=== PATIENT | female | born 1955 | race Caucasian/White ===

== ENCOUNTER 2019-10-27 18:23 | Inpatient (IN) | payer OTHER ==
[~2019-10-27] VITALS: Ht 162.6 cm; Wt 55.8 kg
--- NOTE | 2019-10-27 18:28 | NUR ---
BIB RA 39 From "[facility] was waiting for MRI-took seroquel -now sleepy [id number]" pt states "took 2 instead of 4". to ER bed 9, hooked to cardiac specialist and pox, normal sinus rhythm noted. patient responds to tactile stimuli. answers one question after repetition. appears drowsy. Dr Frey at bedside
[2019-10-27] MEDS ORDERED: IV NS 0.9% 500 ML BAG IV ONE (18:30)
--- NOTE | 2019-10-27 18:43 | NUR ---
picked up by anjali rogers via [facility] for ct scan
--- NOTE | 2019-10-27 19:15 | NUR ---
patient refusing straight catheter, made md aware.
--- NOTE | 2019-10-27 19:16 | NUR ---
PT UNABLE TO PROVIDE URINE AT THIS TIME. MADE AWARE
--- NOTE | 2019-10-27 19:16 | NUR ---
EKG AT BEDSIDE
[2019-10-27 19:19] LABS: BASOPHILS % (AUTO) 0.3 % (0.0-2.0); EOSINOPHILS % (AUTO) 0.2 % (0.0-6.0); HEMATOCRIT 39 % (33-45); HEMOGLOBIN 12.9 g/dL (11.5-14.8); LYMPHOCYTES # (AUTO) 1.9 /CMM (0.8-4.8); LYMPHOCYTES % (AUTO) 47.8 % (20.0-44.0); MEAN CORPUSCULAR HGB CONC 33 g/dl (31.0-36.0); MEAN CORPUSCULAR VOLUME 104 fL (82-100); MONOCYTES # (AUTO) 0.3 /CMM (0.1-1.30); MONOCYTES % (AUTO) 7.6 % (2.0-12.0); NEUTROPHILS # (AUTO) 1.7 /CMM (1.8-8.9); NEUTROPHILS % (AUTO) 44.1 % (43.0-81.0); PLATELET COUNT (AUTO) 150 /CMM (150-450); RED BLOOD CELL COUNT(AUTO) 3.73 MIL/uL (4.0-5.2); WHITE BLOOD COUNT (AUTO) 3.9 K/uL (4.3-11.0)
--- NOTE | 2019-10-27 19:24 | NUR ---
COVID SAMPLE SWAB COLLECTED AND SENT TO LAB
[2019-10-27 19:36] LABS: ALANINE AMINOTRANSFERASE 17 U/L (12-78); ALBUMIN 3.7 g/dL (3.4-5.0); ALCOHOL, BLOOD 28 mg/dL (0-0); ALKALINE PHOSPHATASE 78 U/L (46-116); ASPARTATE AMINOTRANSFERASE 17 U/L (15-37); BILIRUBIN,DIRECT 0.1 mg/dL (0.0-0.2); BILIRUBIN,TOTAL 0.2 mg/dL (0.2-1.0); CARBON DIOXIDE 26 mmol/L (21-32); CHLORIDE 106 mmol/L (98-107); CREATININE 0.6 mg/dL (0.6-1.3); GLUCOSE 88 mg/dL (74-106); SALICYLATE 5.5 mg/dL (2.8-20.0); SODIUM SERUM 141 mmol/L (136-145); TOTAL PROTEIN, SERUM 7.8 g/dL (6.4-8.2); UREA NITROGEN, BLOOD 26 mg/dL (7-18)
[2019-10-27 19:37] LABS: ACETAMINOPHEN 0 ug/ml (10-30)
[2019-10-27 19:49] LABS: SERUM AMMONIA 29 umol/L (11-32)
[2019-10-27] MEDS ORDERED: IOHEXOL-300 100 ML VIAL IV ONE ×2 (19:51→20:01)
[2019-10-27] MEDS ORDERED: CT SWABBABLE VALVE TRANS SET 1 EA INFUS.SET MC ONE ×2 (19:52→20:01)
[2019-10-27] MEDS ORDERED: IV NS 0.9% 250 ML IV ONE ×2 (19:52→20:01)
[2019-10-27 20:01] LABS: APPEARANCE,URINE Clear (CLEAR); BILIRUBIN,URINE Negative (NEGATIVE); BLOOD, URINE Negative Ery/uL (NEGATIVE); COLOR,URINE Yellow (YELLOW); KETONES,URINE Negative (NEGATIVE); LEUKOCYTE ESTERASE ,URINE Negative (NEGATIVE); NITRITE, URINE Negative (NEGATIVE); PROTEIN,URINE Negative (NEGATIVE); UGLUCOSE Negative (NEGATIVE); UROBILINOGEN,URINE 0.2 EU/dL (0.2)
--- NOTE | 2019-10-27 20:02 | NUR ---
URINE COLLECTED AND SENT TO LAB
--- NOTE | 2019-10-27 20:10 | NUR ---
PT TAKEN TO RADIOLOGY FOR CT
[2019-10-27 20:55] LABS: THYROID STIMULATING HORMONE 0.786 uIU/mL (0.358-3.74)
--- NOTE | 2019-10-27 21:14 | NUR ---
TELE 166-2
--- NOTE | 2019-10-27 21:41 | NUR ---
REPORT CALLED TO SHRIMP PEELING MACHINE TENDER JEM. WILL TRANSPORT PT VIA ACLS PROTOCOL.
[2019-10-27 22:00] VITALS: BP 115/64
[2019-10-27] MEDS ORDERED: ONDANSETRON HCL/PF 4 MG/2 ML VIAL IVP PRN (22:00)
[2019-10-27] MEDS ORDERED: ACETAMINOPHEN 650 MG/SUPP.RECT RC PRN (22:00)
[2019-10-27] MEDS ORDERED: ENOXAPARIN SODIUM 40 MG/0.4 ML DISP.SYRIN SQ SCH (22:00)
--- NOTE | 2019-10-27 22:00 | NUR ---
ADMISSION NOTES: RECEIVED REPORT FROM CABLE ENGINEER [employer]IDE [employer]. PT BROUGHT TO THE UNIT VIA GURNEY AT 2145. PER REPORT PT WAS BROUGHT BY EMT PT WAS IN [facility] WAITING FOR MRI, AND SHE MISTAKENLY TOOK 2 SEROQUEL, AND THEN PT BECAME VERY SLEEPY AND DIFFICULT TO AROUSE. PT WAS THEN TRANSFERRED TO BED. PLACED ON 2L OXYGEN. SKIN ASSESSMENT PERFORMED, NO SKIN ISSUES NOTED. IV ACCESS ON RIGHT AC G 18, PATENT AND FLUSHING WELL, ON HL. UNABLE TO OBTAIN ANY PERTINENT INFORMATION ( SUCH MEDICAL HISTORY, HOME MEDICATIONS, BACKGROUND/LIVING ARRANGEMENT/ALLERGY/SX HX) PT VERY SLEEPY, RESPONSIVE TO PAIN BUT WILL GO BACK TO SLEEP RIGHT AWAY. MD AWARE. PT EVEN ABLE TO VERBALIZED SHE IS HUNGRY THEN AFTER FEW MINUTES, SHE'S BACK TO SLEEPING. CALL LIGHT IN REACH. VS TAKEN AND RECORDED. PLACED ON TELE MONITORING, SINUS RHYTHM HR 80. SAFETY PRECAUTIONS FOR FALL INITIATED, CALL LIGHT IN REACH, WILL CONTINUE MONITORING PT.
--- NOTE | 2019-10-27 22:26 | NUR ---
rn notes: unable to determine pt's history and allergies, as pt very sleepy, will wake up from time to time but then will go back to sleep.
--- NOTE | 2019-10-27 22:28 | NUR ---
rn notes: unable to assess pt's allergy and medical hx due to pt's current condition.
--- NOTE | 2019-10-27 22:38 | NUR ---
rn notes: inventory of belongings performed by assigned rn and abe hartman. noted empty bottles of medication without labels. also money/bills, and cigarette which we took and placed on cigarrette drawer by [address]. no cellphone found. please see the inventory of belonging papers attached in chart.
--- NOTE | 2019-10-27 22:42 | NUR ---
rn notes/lovenox schedule: notified neon sign mechanic hospitalist regarding pt's lovenox schedule for 2200 tonight. informed him that per allergy-unable to assess due to pt's condition being very sleepy, and unable to do any interview/questioning/assessment. spoked with pharmacist named tylor, was told to ask md if he wants to start lovenox tonight or tomorrow when pt's allergy are confirmed. Per hospitalist, okay to start lovenox tomorrow morning. orders read back verified and carried out. contacted [facility] again, per pharmacist, they will change the schedule to tomorrow am.
--- NOTE | 2019-10-27 23:00 | NUR ---
rn notes: Patient is responsive, unable to participate in conversation and answer any questions. hot car charger jamilah aware.
[2019-10-27] MEDS: IV D5/0.45 NACL 1,000 ML IV PRN (23:28)
--- NOTE | 2019-10-27 23:28 | NUR ---
accu check: blood sugar performed and result is 92. unable to obtain when was pt's last meal intake. pt remains to be very sleepy, wakes up few minutes ago stating she wants to eat and she's hungry, then doze off again. pt responsive to pain, rr 18, spo2 97% hr 75.
[2019-10-28] VITALS: BP 120/78
--- NOTE | 2019-10-28 | NUR ---
rn notes: pt high aspiration risk, very sleepy, unable to answer any question as pt sleeping most of the time, pt on npo. will start giving food when pt more awake and alert per md.
--- NOTE | 2019-10-28 01:02 | NUR ---
RN NOTES: PT AWAKE, ASSISTED TO BEDPAN, VOIDED FREELY. THEN PT WENT BACK TO SLEEP. FALL PRECAUTIONS ENGAGED.
--- NOTE | 2019-10-28 02:00 | NUR ---
rn notes: pt sleeping, responsive to painful stimuli, will open eyes and will say she's hungry, but then will go back to sleep easily, rr 18, on tele monitoring sinus rhythm hr 80, respirations even and unlabored, pt on 2L oxygen.
[2019-10-28 04:00] VITALS: BP 130/77
--- NOTE | 2019-10-28 04:00 | NUR ---
rn notes: assisted by rn susanne to bedpan. pt doze off again, remains on sinus rhythm hr 75-80, rr 17, noted equal rise and fall of chest.
--- NOTE | 2019-10-28 06:00 | NUR ---
rn notes: fixed pt's lead, pt woke up stating she feels cold, provided with warm blanket, tried to ask questions to patient but unable to obtain information as during the questioning pt started dozing off, next thing noted pt was snoring.
--- NOTE | 2019-10-28 07:00 | NUR ---
CLOTH FINISHING RANGE TENDER OPENING NOTES Patient remains sleepy, but responsive to verbal and tactile stimuli. Still on o2 @ 2LPM via NC. No shortness of breath noted at this time. IV site on right AC, intact and infusing well. Will monitor patient level of consciousness and will report changes. All needs will be anticipated and provided to. Will keep safe and comfortable.
--- NOTE | 2019-10-28 07:03 | NUR ---
end of shift report: pt remains sleepy, responsive to painful stimuli, remains on 2l oxygen via nc, rr 17 spo2 98%. iv access remains patent and flushing well, infusing with d5 1/2 ns at 75ml/hr. remains unable to obtain pertinent information due to mental status and condition. PLAN OF CARE: Psych consult when pt more awake and alert. vs remains stable, needs attended. safety precautions for fall remains engaged, call light in reach, will endorse to day rn roberto for continuity of care.
[2019-10-28 08:00] VITALS: BP_SYST 117; BP_SYST 130; BP_DIAS 68; BP_DIAS 71
[2019-10-28] MEDS: ENOXAPARIN SODIUM 40 MG/0.4 ML DISP.SYRIN SQ SCH (08:37)
[2019-10-28] MEDS ORDERED: BACL20TA PO (09:22)
[2019-10-28] MEDS ORDERED: NAPR-1009 MT (09:22)
[2019-10-28] MEDS ORDERED: SERT100T PO (09:22)
[2019-10-28] MEDS ORDERED: FLUO15CR4 TP (09:22)
[2019-10-28] MEDS ORDERED: OMEP20TA5 PO (09:22)
[2019-10-28] MEDS ORDERED: HYDR-3980 PO (09:22)
[2019-10-28] MEDS ORDERED: VALA500T40 MT (09:23)
[2019-10-28] MEDS: ACETAMINOPHEN 325 MG TABLET PO PRN ×2 (11:08→19:41)
[2019-10-28] MEDS ORDERED: ACETAMINOPHEN 325 MG TABLET PO PRN (15:30)
[2019-10-28 16:00] VITALS: BP 130/68
--- NOTE | 2019-10-28 18:21 | NUR ---
TECHNOLOGY AUDITOR CLOSING NOTES Pt remains awake and oriented x 3. Respiration is even and easy with no shortness of breath. No apparent distress at this time. Able to consume 100% of her meals with good appetite. Medications given as ordered. Kept safe and comfortable. Seen by MD today with orders for Psych consult. Awaiting for psychiatrist.
--- NOTE | 2019-10-28 19:33 | NUR ---
MS RN OPENING NOTES PATIENT AWAKE IN BED. A/OX2-3. ON RA. NO C/O SOB; BREATHING IS EVEN AND UNLABORED. PATIENT C/O OF LEG CRAMPS. IV PRESENT ON RIGHT AC, SIZE 18, INTACT & PATENT WITH D5 1/2 NS RUNNING AT 75 ML/HR. SAFETY MEASURES IN PLACE AND PATIENT'S NEEDS MET. BED LOCKED, ALARM ON, SIDE RAILS X2, CALL LIGHT WITHIN REACH. WILL CONTINUE TO MONITOR.
--- NOTE | 2019-10-28 19:41 | NUR ---
MS RN NOTES PRN TYLENOL 650 MG PO GIVEN TO GIVEN PER PATIENT'S REQUEST FOR LEG CRAMPS.
[2019-10-28 20:00] VITALS: BP 108/76
[2019-10-28 21:01] LABS: BASOPHILS # (AUTO) 0.1 /CMM (0.0-0.2); BASOPHILS % (AUTO) 0.8 % (0.0-2.0); EOSINOPHILS % (AUTO) 0.1 % (0.0-6.0); HEMATOCRIT 42 % (33-45); HEMOGLOBIN 13.9 g/dL (11.5-14.8); LYMPHOCYTES # (AUTO) 2.7 /CMM (0.8-4.8); LYMPHOCYTES % (AUTO) 36.2 % (20.0-44.0); MEAN CORPUSCULAR HGB CONC 33 g/dl (31.0-36.0); MEAN CORPUSCULAR VOLUME 103 fL (82-100); MONOCYTES # (AUTO) 0.4 /CMM (0.1-1.30); MONOCYTES % (AUTO) 5.7 % (2.0-12.0); NEUTROPHILS # (AUTO) 4.2 /CMM (1.8-8.9); NEUTROPHILS % (AUTO) 57.2 % (43.0-81.0); PLATELET COUNT (AUTO) 171 /CMM (150-450); RED BLOOD CELL COUNT(AUTO) 4.08 MIL/uL (4.0-5.2); WHITE BLOOD COUNT (AUTO) 7.4 K/uL (4.3-11.0)
[2019-10-28 21:24] LABS: ALBUMIN 3.5 g/dL (3.4-5.0); BILIRUBIN,TOTAL 0.2 mg/dL (0.2-1.0); CALCIUM, SERUM 8.6 mg/dL (8.5-10.1); CREATININE 0.9 mg/dL (0.6-1.3); MAGNESIUM 2.3 mg/dL (1.8-2.4); POTASSIUM 3.7 mmol/L (3.5-5.1); TOTAL PROTEIN, SERUM 8.2 g/dL (6.4-8.2)
[2019-10-29] MEDS: IV D5/0.45 NACL 1,000 ML IV PRN (06:16)
[2019-10-29 06:38] LABS: BASOPHILS # (AUTO) 0.1 /CMM (0.0-0.2); BASOPHILS % (AUTO) 1.3 % (0.0-2.0); EOSINOPHILS % (AUTO) 0.1 % (0.0-6.0); HEMATOCRIT 43 % (33-45); HEMOGLOBIN 14.1 g/dL (11.5-14.8); LYMPHOCYTES # (AUTO) 1.9 /CMM (0.8-4.8); MEAN CORPUSCULAR HGB CONC 33 g/dl (31.0-36.0); MEAN CORPUSCULAR VOLUME 108 fL (82-100); MONOCYTES # (AUTO) 0.3 /CMM (0.1-1.30); MONOCYTES % (AUTO) 7.3 % (2.0-12.0); NEUTROPHILS # (AUTO) 1.9 /CMM (1.8-8.9); NEUTROPHILS % (AUTO) 46.3 % (43.0-81.0); PLATELET COUNT (AUTO) 151 /CMM (150-450); RED BLOOD CELL COUNT(AUTO) 4.02 MIL/uL (4.0-5.2); WHITE BLOOD COUNT (AUTO) 4.2 K/uL (4.3-11.0)
--- NOTE | 2019-10-29 06:39 | NUR ---
MS RN CLOSING NOTES PATIENT SLEEPING, EASY TO AWAKEN. A/OX3. ON RA. NO S/S OF ACUTE RESPIRATORY DISTRESS; BREATHING IS EVEN AND UNLABORED. IV PRESENT ON RIGHT AC, SIZE 18, INTACT & PATENT WITH D5 1/2 NS RUNNING AT 75 ML/HR. SAFETY MEASURES IN PLACE AND PATIENT'S NEEDS MET. BED LOCKED, ALARM ON, SIDE RAILS X2, CALL LIGHT WITHIN REACH. WILL ENDORSE TO DAY SHIFT RN PLAN OF CARE.
[2019-10-29 07:25] LABS: CALCIUM, SERUM 8.4 mg/dL (8.5-10.1); CREATININE 0.7 mg/dL (0.6-1.3); MAGNESIUM 2.2 mg/dL (1.8-2.4); PHOSPHORUS 3.7 mg/dL (2.5-4.9); POTASSIUM 4.1 mmol/L (3.5-5.1)
--- NOTE | 2019-10-29 07:40 | NUR ---
MS RN NOTES RECEIVED PT IN BED, AWAKE, A/O X3. PT TOLERATING RA, WITH NO ACUTE RESPIRATORY DISTRESS NOTED. PT DENIES ANY PAIN AT THIS TIME. PT DENIES ANY CONCERNS OR QUESTIONS WELL. IVF TO LFA G20, FLUID INFUSING WELL. PT KEPT COMFORTABLE. CALL LIGHT KEPT WITHIN REACH. PT'S BED IN LOWEST, LOCKED POSITION WITH SR X3. WILL CONTINUE PLAN OF CARE.
[2019-10-29 08:00] VITALS: BP 111/75
[2019-10-29] MEDS: ENOXAPARIN SODIUM 40 MG/0.4 ML DISP.SYRIN SQ SCH (08:50)
[2019-10-29] MEDS: ACETAMINOPHEN 325 MG TABLET PO PRN (11:21)
[2019-10-29 16:00] VITALS: BP 115/73
[2019-10-29] MEDS ORDERED: LOPERAMIDE HCL (2 MG CAP) 2 MG CAPSULE PO PRN (16:30)
--- NOTE | 2019-10-29 16:46 | NUR ---
MS RN NOTES PT REQUESTED FOR IMODIUM BEFORE LEAVING ANG SHOWER. MD/SK OKAY WITH IT. WILL CONTINUE TO MONITOR.
--- NOTE | 2019-10-29 17:30 | NUR ---
MS RN NOTES PT REMOVED PIV TO RAC, RN APPLIED DRY DRESSING AFTER SHOWER. PT STATED SHE'LL ARRRANGE HER OWN TRANSPORTATION TO HOME. AWAITING FOR TRANSPORT CONFIRMATION. VS STABLE.
--- NOTE | 2019-10-29 19:16 | NUR ---
MS RN NOTES PT REMAINS IN BED, AWAKE, A/O X3. PT TOLERATING RA, WITH NO ACUTE RESPIRATORY DISTRESS NOTED. PT DENIES ANY PAIN AT THIS TIME. NO PIV NOTED. ALL NEEDS AND CARE ATTENDED. PT KEPT COMFORTABLE. CALL LIGHT KEPT WITHIN REACH. PT'S BED IN LOWEST, LOCKED POSITION WITH SR X3. ENDORSED TO NIGHT NURSE FOR DISCHARGE TONIGHT.
--- NOTE | 2019-10-29 19:45 | NUR ---
MS RN OPENING NOTES PATIENT RECEIVED RESTING IN BED COMFORTABLY; A/OX4; BREATHING EVEN AND UNLABORED; TOLERATING ROOM AIR WELL; NO SOB NOTED; PER PATIENT, RIDE IS NOT AVAILABLE TO PICK HER UP UNTIL 10PM; IV SITE ALREADY REMOVED; SAFETY PRECAUTIONS IMPLEMENTED; BED LOCKED IN LOW POSITION; SIDE RAILX2; CALL LIGHT WITHIN REACH; WILL CONT TO MONITOR; AWAITING HOUSE MOVER HELPER; CHARGE NURSE AWARE;
[2019-10-29 20:00] VITALS: BP_SYST 146; BP_SYST 148; BP_DIAS 85
--- NOTE | 2019-10-29 21:35 | NUR ---
MS RN NOTES PER PATIENT WILL BE PICKING HER UP SHORTLY; DISCHARGE PAPER WORK DISCUSSED AND REVIEWED; PATIENT VERBALIZED UNDERSTANDING; PAPERWORK SIGNED; BELONGINGS CHECKED AND ALL BELONGINGS WITH PATIENT; ID BAND REMOVED; PATIENT DISCHARGED APPROX [id number]; VITALS STABLE; PATIENT DISCHARGED; PATIENT ACCOMPANIED BY SHELLIE DOWNSTAIRS;
== END 2019-10-29 21:30 | disposition home health service (06) | DRG 812 ==
LOC: ER 18:23 → TELE 21:33 → MED 10-28 09:04
PROVIDERS: ADMIT Nurse Practitioner Acute Care; ATTEND Student in an Organized Health Care Education/Training Program
DX: T40.601A Poisoning by unspecified narcotics, accidental (unintentional), initial encounter (principal); G92 Toxic encephalopathy; Y92.89 Other specified places as the place of occurrence of the external cause; N17.0 Acute kidney failure with tubular necrosis; D68.59 Other primary thrombophilia; Z74.09 Other reduced mobility; T51.0X1A Toxic effect of ethanol, accidental (unintentional), initial encounter
CPT/HCPCS: 36415; 70450-TC; 71045-TC; 71260-TC; 80048-TC; 80053-TC; 80061-TC; 80076-TC; 80305; 81000-TC; 82140-TC; 82962-TC; 83036-TC; 83540-TC; 83735-TC; 84100-TC; 84443-TC; 84484-TC; 85025-TC; 85730-TC; 87081-TC; 97116-TC; 97530-TC; C9803-CS; G0378; G0480; J1650; J3490; J7040; J7050; Q9967